=== PATIENT | male | born 1995 | race Caucasian/White ===

== ENCOUNTER 2016-06-29 18:33 | Emergency (ER) | payer OTHER ==
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
--- NOTE | 2016-06-30 02:37 | ED ORDER SUMMARY ---
..... Patient: HENRY SLATER OrderSheet [facility] VisitID: [id number] [place] [address] 21y, M Registration Date/Time: 06/29/2016 ORDER SHEET Weight: 77.1 kg (stated) Allergies: None GENERAL ORDERS: Knee 4V Right Urgent (18:46 06/29/2016 HBivens A.R.N.P.) (19:08 DDean R.N.) Toño Wrap (19:44 06/29/2016 HBivens A.R.N.P.) (20:08 DDean R.N.) Dress Wounds (19:44 06/29/2016 HBivens A.R.N.P.) (20:08 DDean R.N.) Crutches (20:08 06/29/2016 DDean R.N. verbal order read back to HBivens A.R.N.P.) (20:08 DDean R.N.) MEDICATION ORDERS: Tdap IM 0.5 mL (NOW, per protocol) (18:46 06/29/2016 HBivens A.R.N.P.) (Ack 18:53 RMarsden R.N.) (19:05 RMarsden R.N.) IV FLUIDS: ORDER SHEET NOTES: [Electronically signed by Vonda Alanis R.N. (20:17 06/29/2016)] [Electronically signed by Andreina Miles.R.N.P. (21:27 06/29/2016)] [Electronically locked/signed by Vonda Alanis R.N. (20:17 06/29/2016)]
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
--- NOTE | 2016-06-30 02:37 | ED ORDER SUMMARY ---
..... Patient: HENRY SLATER OrderSheet [facility] VisitID: [id number] [place] [address] 21y, M Registration Date/Time: 06/29/2016 ORDER SHEET Weight: 77.1 kg (stated) Allergies: None GENERAL ORDERS: Knee 4V Right Urgent (18:46 06/29/2016 HBivens A.R.N.P.) (19:08 DDean R.N.) Toño Wrap (19:44 06/29/2016 HBivens A.R.N.P.) (20:08 DDean R.N.) Dress Wounds (19:44 06/29/2016 HBivens A.R.N.P.) (20:08 DDean R.N.) Crutches (20:08 06/29/2016 DDean R.N. verbal order read back to HBivens A.R.N.P.) (20:08 DDean R.N.) MEDICATION ORDERS: Tdap IM 0.5 mL (NOW, per protocol) (18:46 06/29/2016 HBivens A.R.N.P.) (Ack 18:53 RMarsden R.N.) (19:05 RMarsden R.N.) IV FLUIDS: ORDER SHEET NOTES: [Electronically signed by Vonda Alanis R.N. (20:17 06/29/2016)] [Electronically signed by Andreina Miles.R.N.P. (21:27 06/29/2016)] [Electronically locked/signed by Vonda Alanis R.N. (20:17 06/29/2016)]
--- NOTE | 2016-06-30 02:38 | ED MED RECONCILIATION SUMMARY ---
Patient: HENRY SLATER Medication Reconciliation Report [facility] VisitID: [id number] [place] [address] 21y, M Registration Date/Time: 06/29/2016 Weight: 77.1 kg Height/Length: 74 in. BMI: 21.8 ALLERGIES: None The patient's Home Medications are listed below: NONE. The source(s) of the original Home Medication information: Not obtained. The following Medications were given to the patient in the Emergency Department: TDAP [IM] IM 0.5 mL, administered: 06/29/2016 7:05:00 PM The following Medications were prescribed to the patient: Flexeril 10 mg: Take 1 orally every 8 hours as needed for muscle spasm. Dispense twenty (20). No refills. Substitution is permissible. -- Andreina Miles, A.R.N.P. Ultram 50 mg tablets: take 1-2 orally every 6 hours as needed for pain. Dispense twenty (20). No refills. Substitution is permissible. -- Andreina Miles, A.R.N.P.
--- NOTE | 2016-06-30 02:38 | ED MAR SUMMARY ---
..... Medication Administration Record [facility] [address] [place] [address] Patient: HENRY SLATER Visit ID: [id number] 21y, M Weight: 77.1 kg Height/Length: 74 in BMI: 21.8 ALLERGIES: None Given 19:05 06/29/2016 Anya Conde R.N. Medication Administered: TDAP [IM], Dose: 0.5 mL IM. Medication Ordered: Tdap IM 0.5 mL (NOW, per protocol).
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
--- NOTE | 2016-06-30 02:38 | ED MAR SUMMARY ---
..... Medication Administration Record Located Within [facility] [address] [place] [address] Patient: HENRY SLATER Visit ID: [id number] 21y, M Weight: 77.1 kg Height/Length: 74 in BMI: 21.8 ALLERGIES: None Given 19:05 06/29/2016 Anya Conde R.N. Medication Administered: TDAP [IM], Dose: 0.5 mL IM. Medication Ordered: Tdap IM 0.5 mL (NOW, per protocol).
--- NOTE | 2016-06-30 02:38 | ED MED RECONCILIATION SUMMARY ---
Patient: HENRY SLATER Medication Reconciliation Report [facility] VisitID: [id number] [place] [address] 21y, M Registration Date/Time: 06/29/2016 Weight: 77.1 kg Height/Length: 74 in. BMI: 21.8 ALLERGIES: None The patient's Home Medications are listed below: NONE. The source(s) of the original Home Medication information: Not obtained. The following Medications were given to the patient in the Emergency Department: TDAP [IM] IM 0.5 mL, administered: 06/29/2016 7:05:00 PM The following Medications were prescribed to the patient: Flexeril 10 mg: Take 1 orally every 8 hours as needed for muscle spasm. Dispense twenty (20). No refills. Substitution is permissible. -- Andreina Miles, A.R.N.P. Ultram 50 mg tablets: take 1-2 orally every 6 hours as needed for pain. Dispense twenty (20). No refills. Substitution is permissible. -- Andreina Miles, A.R.N.P.
== END 2016-06-29 20:05 | disposition home or self-care (01) ==
LOC: ED SRH 18:33
DX: S80.01XA Contusion of right knee, initial encounter (principal); S80.211A Abrasion, right knee, initial encounter; S60.512A Abrasion of left hand, initial encounter; S80.212A Abrasion, left knee, initial encounter; V03.02XA Pedestrian on skateboard injured in collision with car, pick-up truck or van in nontraffic accident, initial encounter; Y93.51 Activity, roller skating (inline) and skateboarding; Y92.9 Unspecified place or not applicable; Y99.9 Unspecified external cause status; Z23 Encounter for immunization

== ENCOUNTER 2016-08-30 12:00 | Outpatient (CLI) | payer OTHER ==
--- NOTE | 2016-08-30 12:41 | DIAGNOSTIC IMAGING REPORT ---
PROCEDURE: XR KNEE 4 VIEWS - RIGHT INDICATION: RIGHT KNEE PAIN WORSENING FOR 2MO AGO TECHNIQUE: Four views. COMPARISON: Right knee films 06/29/2016 FINDINGS: Normal mineralization. No acute fractures. Well corticated indentation along the lateral aspect of the lateral tibial plateau. Normal osseous alignment. No joint effusion. No suspicious soft-tissue calcification or radiodense foreign bodies. IMPRESSION: 1. No acute fracture. 2. 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
== END 2016-08-30 23:00 ==
LOC: XR SRH 12:00
DX: M25.561 Pain in right knee (principal)

== ENCOUNTER 2016-10-14 08:27 | Outpatient (CLI) | payer OTHER ==
--- NOTE | 2016-10-14 11:20 | DIAGNOSTIC IMAGING REPORT ---
PROCEDURE: MR LOWER EXT JOINT WO CONT-RT INDICATION: RT KNEE INTERNAL DERANGEMENT TECHNIQUE: PD and FAT-SAT PD sagittal and coronal images. FAT-SAT PD axial images. High-resolution T2 sagittal images of the cruciate ligaments. (Total of 6 sequences). COMPARISON: Right knee x-rays of 08/30/2016. FINDINGS: ACL edema and hazy margins consistent with a partial tear. Posterior cruciate and collateral ligaments are intact. Mild tibial plateau bone contusion. Normal menisci. Normal articular cartilage. Quadriceps and patellar tendons are normal. Mild chondromalacia patella. Small joint effusion. There is no popliteal cyst. IMPRESSION: 1. Findings consistent with a partial ACL tear 2. Mild tibial plateau bone contusion 3. Mild chondromalacia patella 4. Small joint effusion.
== END 2016-10-14 23:00 | disposition home or self-care (01) ==
LOC: MRI SRH 08:27
DX: S80.01XA Contusion of right knee, initial encounter (principal); M22.41 Chondromalacia patellae, right knee